=== PATIENT | male | born 1950 | race Caucasian/White ===

== ENCOUNTER → 2019-11-16 12:48 | Outpatient (BNVA) | payer MEDICARE, SELFPAY | PROVIDERS: PCP Internal Medicine; Visit Provider Orthopaedic Surgery | DX: S83.242A Other tear of medial meniscus, current injury, left knee, initial encounter (principal) | CPT/HCPCS: 99214 ==

== ENCOUNTER 2019-12-06 06:04 | Outpatient (REF) | payer MEDICARE, SELFPAY | END 2019-12-06 06:05 | disposition home or self-care (01) | LOC: HO.LAB 06:04 | PROVIDERS: PCP Internal Medicine; Visit Provider Internal Medicine | DX: Z20.828 Contact with and (suspected) exposure to other viral communicable diseases (principal) | CPT/HCPCS: 87635 ==

== ENCOUNTER 2019-12-06 06:19 | Day surgery (SDC) | payer MEDICARE, SELFPAY ==
--- NOTE | 2019-12-05 09:43 | HO.ANESPROP2 ---
Documented by User: Helene Felipe 12/05/19 09:51 HPI - Anesthesia Eval Consult details Narrative: 69yo M for L knee arthroscopy [facility] Past Medical History Medical History Back pain Depression Gout Hypertension Obesity PAUL (obstructive sleep apnea) PAF (paroxysmal atrial fibrillation) Prostate cancer Tear of medial meniscus of left knee Family History Family History Mother No problems noted. Surgical History Surgical History H/O colonoscopy H/O prostate biopsy History of Problems with Anesthesia: No Social History Social History Smoking Status: Never smoker Use of substances other than those prescribed or required for medical reasons: No Have you been hit, kicked, punched, or otherwise hurt by someone within the past year? If so, by whom?: No Advance Directives: No Advance Directives Information Provided: Yes Meds Allergies Allergy/AdvReac Type Severity Reaction Status Date / Time ciprofloxacin [From CIPRO] Allergy Unknown RASH Verified 11/16/19 12:56 prednisone [PREDNISONE] Allergy Unknown JOINT PAIN Verified 11/16/19 12:56 Home Medications Medication Instructions Recorded Confirmed Type allopurinol 300 mg tablet 300 mg PO DAILY 11/11/19 History amlodipine 10 mg tablet 10 mg PO DAILY 11/11/19 History carvedilol 25 mg tablet 25 mg PO BID 11/11/19 History Exam Exam Date and Time: December 05, 2019 0943 Narrative Narrative: EKG 10/2019: SB @59, LAD, Nonspec ST and T wave abn Echo 03/2018: LVEF 60-65%, no RWMA, No obvious valve path Assessment and Plan Assessment Anesthesia Assessment: Chart Reviewed Documented by User: Kevin Zavala 12/06/19 07:12 [facility] Past Medical History Medical History Back pain Depression Gout Hypertension Obesity PAUL (obstructive sleep apnea) PAF (paroxysmal atrial fibrillation) Prostate cancer Tear of medial meniscus of left knee Family History Family History Mother No problems noted. Surgical History Surgical History H/O colonoscopy H/O prostate biopsy Social History Social History Smoking Status: Never smoker Use of substances other than those prescribed or required for medical reasons: No Have you been hit, kicked, punched, or otherwise hurt by someone within the past year? If so, by whom?: No Advance Directives: No Advance Directives Information Provided: Yes Meds Allergies Allergy/AdvReac Type Severity Reaction Status Date / Time ciprofloxacin [From CIPRO] Allergy Unknown RASH Verified 11/16/19 12:56 prednisone [PREDNISONE] Allergy Unknown JOINT PAIN Verified 11/16/19 12:56 Home Medications Medication Instructions Recorded Confirmed Type allopurinol 300 mg tablet 300 mg PO DAILY 11/11/19 History amlodipine 10 mg tablet 10 mg PO DAILY 11/11/19 History carvedilol 25 mg tablet 25 mg PO BID 11/11/19 History Exam Airway Mallampati Class: III TM Dist: >3cm Neck ROM: Full Loose/Missing/Broken Teeth: No Heart: [id number] Lungs: cta b/l Assessment and Plan Assessment Anesthesia Assessment: Anesthesia Plan Discussed, PAT Visit and Chart Reviewed Final Anesthetic Review NPO: Yes ASA Class: III Final Preanesthetic Review: No Changes in Pt Med Stat, Meds/Allgs Chart Reviewed, Consent Obtained/Reviewed and Anes Risks/Benef Reviewed Patient Risk: Intermediate Procedure Risk: Low Assessment/Block/Sedation in SS: Assess/Block/Sedation-SS Anesthetic Plan Anesthetic Plan: GA Disposition: Standard PACU
[2019-12-06] VITALS (8 sets, daily range): BP systolic 136–159; BP diastolic 71–90; PULSE 56–60; RESP 16–20; TEMP 36.1; O2SAT 99–100; BMI 35.2
[2019-12-06] MEDS: Lactated Ringers 1,000 ML 100 ML IVCONT (06:55)
--- NOTE | 2019-12-06 07:29 | MHC.SHP ---
Pre-Procedural Eval Section A The patient is an INPATIENT: No Changes since office visit: Yes Patient answered all questions; No Cold of Flu in the past 2 weeks, No New Medical Problems and No Changes in Medication The History & Physical has been completed within 30 days and I have reviewed it.: Yes Section B Chief Complaint: Tear of Medial Meniscus Allergies: Allergies Allergy/AdvReac Type Severity Reaction Status Date / Time ciprofloxacin [From CIPRO] Allergy Unknown RASH Verified 11/16/19 12:56 prednisone [PREDNISONE] Allergy Unknown JOINT PAIN Verified 11/16/19 12:56 Plan Patient has been examined and remains a candidate for the planned procedure
[2019-12-06] MEDS: ceFAZolin Sodium/Dextrose,Iso 2 GM/50 ML PIGGYBACK IV (07:35)
--- NOTE | 2019-12-06 08:30 | PM.OP ---
Brief Operative Note Date of procedure: 12/06/19 Pre-op diagnosis: left knee medial meniscus tear Post-op diagnosis: other (1) same 2) left knee OA) Procedure: left knee medial meniscectomy and chondroplasty Surgeon: Kyle Mccord MD Anesthesia: GLMA and local Estimated blood loss (mL): 0 Tourniquet time (min): 20 IV fluids (mL): 500 Pathology: none sent Condition: stable Disposition: PACU
[2019-12-06] MEDS: fentaNYL citrate/PF 100 MCG/2 ML VIAL 25 MCG IVPUSH (09:13)
[2019-12-06] MEDS: oxyCODONE HCl Immed Release 5 MG TABLET 10 MG PO (09:18)
[2019-12-06] MEDS: Acetaminophen 325 MG TABLET 650 MG PO (09:19)
--- NOTE | 2019-12-06 10:21 | OP_ITS ---
SURGEON: Kyle Mccord MD INDICATIONS: This is a 69-year-old gentleman with pain in the left knee. Clinical and MRI evidence of meniscal tearing with minimal arthritis, consented to undergo left knee arthroscopy. PREOPERATIVE DIAGNOSIS: Left knee medial meniscal tear. POSTOPERATIVE DIAGNOSIS: Left knee medial meniscus tear Left knee osteoarthritis PROCEDURE PERFORMED: Left knee medial meniscectomy and chondroplasty. ESTIMATED BLOOD LOSS: None. COMPLICATIONS: None. ANESTHESIA: LMA and local. ASSISTANTS: None. SPECIMENS: POSTOPERATIVE DIAGNOSES: Left knee medial meniscal tear, left knee osteoarthritis. FLUIDS: 800. PROCEDURE IN DETAIL: The patient was brought to the operating room, placed supine on the arthroscopic table and prepped and draped in standard sterile fashion. Time-out was called to identify proper site, proper procedure, proper surgeon. IV antibiotics per weight was administered. I began by exsanguinating the limb and insufflating tourniquet to 300 mmHg. I made a standard anterolateral stab incision with 15 blade, placed my blunt trocar atraumatically into the patellofemoral joint. I insufflated the joint and placed my 30-degree arthroscope. There were grade 1 changes of the patella and grade 2 and scattered grade 3 changes throughout the majority of the trochlea. Gutters were clean. I descended into the medial compartment, where there was a large medial meniscus tear. A medial portal was made under direct visualization, and the torn portions of the meniscus were debrided down the stable edges using a combination of biter, shaver, and cautery. The articular surfaces were examined and the medial femoral condyle had grade 2 changes throughout the weightbearing portion and the posteromedial compartment had grade 4 changes with a grade 2 changes in the anterior half of the medial tibial plateau. The ACL was intact. Lateral compartment was relatively well preserved with some scattered grade 1 changes only. Once I had felt that the meniscus was debrided down to the stable edges, I removed all instrumentation. Portals were closed with skin glue and 25 mL of 0.25% Marcaine were injected both in the knee and the 2 anterior portals. The patient was placed in sterile dressing, awakened from anesthesia and brought to recovery room in stable condition. There were no known complications. Kyle Mccord MD NE/MODL / [id number] VIDHI
== END 2019-12-06 10:25 | disposition home or self-care (01) ==
PROVIDERS: PCP Internal Medicine; Visit Provider Orthopaedic Surgery
PROC: (CPT 29870; principal; 2019-12-06 07:30)
DX: S83.242A Other tear of medial meniscus, current injury, left knee, initial encounter (principal); M17.12 Unilateral primary osteoarthritis, left knee; X58.XXXA Exposure to other specified factors, initial encounter; Y93.9 Activity, unspecified; Y92.9 Unspecified place or not applicable; Y99.8 Other external cause status; I10 Essential (primary) hypertension; G47.33 Obstructive sleep apnea (adult) (pediatric); I48.0 Paroxysmal atrial fibrillation; M10.9 Gout, unspecified; Z79.899 Other long term (current) drug therapy; Z88.1 Allergy status to other antibiotic agents; Z88.8 Allergy status to other drugs, medicaments and biological substances; C61 Malignant neoplasm of prostate
CPT/HCPCS: 29881; 87635; J0171; J0690; J1100; J1885; J2250; J2405; J3010

== ENCOUNTER → 2019-12-22 12:43 | Outpatient (BNVA) | payer MEDICARE, SELFPAY | PROVIDERS: PCP Internal Medicine; Visit Provider Physician Assistant | DX: S83.242A Other tear of medial meniscus, current injury, left knee, initial encounter (principal); X58.XXXA Exposure to other specified factors, initial encounter; Y93.9 Activity, unspecified; Y92.9 Unspecified place or not applicable; Y99.8 Other external cause status | CPT/HCPCS: 99212 ==

== ENCOUNTER → 2020-02-05 14:28 | Outpatient (BNVA) | payer MEDICARE, SELFPAY | PROVIDERS: PCP Internal Medicine; Visit Provider Internal Medicine Cardiovascular Disease | DX: I48.0 Paroxysmal atrial fibrillation (principal); I10 Essential (primary) hypertension | CPT/HCPCS: 93005; 99212 ==

== ENCOUNTER → 2020-05-06 09:54 | Outpatient (BNVA) | payer MEDICARE, SELFPAY | PROVIDERS: PCP Internal Medicine; Visit Provider Internal Medicine Cardiovascular Disease | DX: R94.31 Abnormal electrocardiogram [ECG] [EKG] (principal) | CPT/HCPCS: 93005 ==

== ENCOUNTER → 2020-07-08 10:00 | Outpatient (BNVA) | payer MEDICARE, SELFPAY | PROVIDERS: PCP Internal Medicine; Visit Provider Internal Medicine Cardiovascular Disease | DX: I48.0 Paroxysmal atrial fibrillation (principal); R07.89 Other chest pain; R06.02 Shortness of breath | CPT/HCPCS: 93005; 99212 ==

== ENCOUNTER → 2020-08-07 07:25 | Outpatient (REF) | payer MEDICARE, SELFPAY ==
--- NOTE | ~2020-08-07 | NM_ITS ---
Myocardial perfusion study Indication: Shortness of breath to evaluate for myocardial ischemia Technique: The patient was brought in for a Lexiscan perfusion study on 08/07/2020. Patient performed low-level exercise and was injected 0.4 mg of Lexiscan intravenously. Within a minute of injection, 40 mCi of sestamibi was given intravenously. Images were obtained using the SPECT gamma camera interlaced with the gating device. Images were obtained in supine position. Resting perfusion study was performed on 08/08/2020. Patient was administered 40 mCi of sestamibi intravenously at rest. Images were then obtained in supine position. Images obtained with and without CT attenuation. Total DLP 130 mGy-cm. Images were processed with the software and compared side to side in short axis, horizontal long axis and vertical long axis views. Findings: The stress perfusion study showed nonattenuated images show mildly reduced uptake in the basal inferior wall of the LV myocardium. Remainder of the LV myocardium is normally perfused. Attenuation corrected images show minimally reduced uptake in the apex of the LV myocardium.. The gated study shows normal LV systolic function with calculated LVEF of 67%. LV cavity is normal in size. The gated study shows normal systolic wall thickening and contraction of segments. Resting study shows no change in perfusion pattern compared to stress perfusion study. Gating at rest reveals normal systolic wall motion with ejection fraction at 74%. The findings are consistent with normal myocardial perfusion. NM/NM cardiolite stress test Impression: 1. Myocardial perfusion imaging study shows normal myocardial perfusion 2. Gated LVEF is 67% 3. Transient ischemic dilatation not present EKG is nondiagnostic for ischemia
--- NOTE | 2020-08-07 07:28 | CA_ITS ---
Transthoracic Echocardiogram Patient (Last, First, Middle): Javier Law L Gender: Male Date of : 1950 Age: 70 Procedure Date: 08/07/2020 Procedure Type: Transthoracic Echocardiogram Location: OP Height: 172.72 cm Weight: 102.06 kg BSA: 2.15 m2 Heart Rate: bpm BP: 120 / 72 mmHg Marketing Senior Recruiter: Referring MD: Melvin Vang MD Clinical Trial Head: Melvin Vang MD Symptoms: R07.89 - Other chest pain Study Quality: Good ECG Rhythm: Sinus Conclusions: - 1. Normal LV systolic function with grade 1 diastolic dysfunction 2. Normal cardiac valvular Doppler 3. Normal RV systolic pressure 4. No gross pericardial effusion Findings Left Ventricle Normal left ventricular size, thickness, and systolic function. The visually estimated ejection fraction is between 60-65%. Spectral Doppler is indicative of an impaired relaxation filling pattern. E/E prime ratio is <8, consistent with normal filling pressures. Evidence suggests grade I (mild) diastolic dysfunction. Right Ventricle Normal right ventricular cavity size and systolic function. Atria The left atrium is likely dilated. There is no evidence of interatrial shunt. The right atrium is normal in size. Aortic Valve Normal aortic valve structure and function. There is no aortic valve stenosis. There is no aortic valve regurgitation. Mitral Valve Normal mitral valve structure and function. There is trace mitral valve regurgitation. There is no mitral valve stenosis. Pulmonic Valve The pulmonic valve is likely normal. Tricuspid Valve Normal tricuspid valve structure. There is trace tricuspid valve regurgitation. The right ventricular systolic pressure is normal. The right ventricular systolic pressure is 27 mmHg. Normal right atrial pressure. There is no evidence of pulmonary hypertension. Great Vessels All visible segments of the aorta are normal in size. The pulmonary artery was not well visualized. Small plaque is seen in the sino tubular ridge. Venous The inferior vena cava is normal in size and collapses greater than 50% with inspiration. Pericardium/Pleural There is no evidence of pericardial effusion. Prior Study Comparison No significant change compared to prior study dated: 03/24/2018. Measurements 2D Linear Measurements RVIDd: 3.61 RVIDd Index: 1.68 IVSd: 1.02 0.6-0.9/0.6-1.0 cm LVIDd: 5.19 3.9-5.3/4.2-5.9 cm LVIDd Index: 2.41 2.4-3.2/2.2-3.1 cm/m2 LVIDs: 3.75 2.0-3.6 cm LVPWd: 1.16 0.7-1.1 cm Ao Root: 2.90 2.1-3.5 cm LA Diam: 4.10 2.7-3.8/3.0-4.0 cm LAIDs Index: 1.91 1.5-2.3 cm/m2 LV Mass: 270.94 67-162/88-224 g LV Mass Index: 126.02 43-95/49-115 g/m2 LVOT Diam: 2.10 3.0+(-)1.3 cm 2D Systolic Function EF 4C: 78.40 >55% EF 2C: 65.40 >55% EF BiP: 72.90 >55% Mitral Valve MV Pk E: 0.90 MV PK A: 0.85 MV Decel Time: 297.00 E/A: 1.10 E'Lateral: 10.00 E'Medial: 9.14 E/E' Med: 9.90 E/E' Lat: 9.00 Aortic Valve AoV Pk Marito: 1.81 AoV Mn Marito: 1.23 AoV VTI: 0.40 AoV Pk Grad: 13.00 Aov Mn Grad: 7.00 LIVAN Cont.VTI: 3.23 LVOT LVOT Pk Marito: 1.49 LVOT Mn Marito: 0.97 LVOT VTI: 0.37 LVOT Pk Grad: 9.00 LVOT Mn Grad: 4.00 LVOT Diam: 2.10 LVOT Area: 3.46 Diastolic Function MV Pk E: 0.90 MV Pk A: 0.85 E/A: 1.10 E'Medial: 9.14 E/E' Med: 9.90 E' Laterial: 10.00 E/E' Lat: 9.00 Tricuspid Valve TR Pk Marito: 2.43 TR Pk Grad: 24.00 RA Press: 3.00 RVSP: 27.00 Great Vessels Aorta Ao Root-2D: 2.90 2.0-3.7 cm Ao Asc: 3.50 2.1-3.4 cm Ao Arch: 3.20 Updated in Other Vendor System with Status of Final Melvin Vang MD electronically signed on 08/07/2020 3:34:17 PM with status of Final
--- NOTE | 2020-08-07 07:28 | CA_ITS ---
Acquisition Time: 2020-08-07 08:12:48 Total Exercise Time: 00:05:23 Test Indications: Dyspnea Medications: ALLOPURINOL AMLODIPINE CARVEDILOL FLONASE DRONEDARONE PAROXETINE XARELTO Protocol: ELKE Max HR: 131 BPM 86% of Pred: 151 BPM Max BP: 160/088 mmHG Max Work Load: 7.0 METS Exercise stress test with exercise 5 min 23 sec of Elke protocol with moderate shortness of breath and leg fatigue and request to stop, no chest pains, with significant artifact on director of critical care without noted arrythmia, with normotensive response to exercise, with nondiagnostic EKG for ischemia due to suboptimal heart rate. Treadmill stopped and assisted to sitting position. Tet changed to a pharmacological stress test with Lexiscan injection, while sitting and kicking his legs, without arrythmia, with normotensive response to injection, with nondiagnostic EKG for ischemia. Nuclear images pending. Test reviewed with Dr Pop. Referred By: Melvin Vang Overread By: FELI LI
== END ==
LOC: HO.CARD 07:25
PROVIDERS: Visit Provider Internal Medicine Cardiovascular Disease
DX: I48.0 Paroxysmal atrial fibrillation (principal); I10 Essential (primary) hypertension; R06.02 Shortness of breath; R07.89 Other chest pain
CPT/HCPCS: 78452; 93017; 93306; A9500; J0280; J2785

== ENCOUNTER → 2020-08-21 10:48 | Outpatient (BNVA) | payer MEDICARE, SELFPAY | PROVIDERS: PCP Internal Medicine; Visit Provider Internal Medicine Cardiovascular Disease | DX: R07.89 Other chest pain (principal); I48.0 Paroxysmal atrial fibrillation | CPT/HCPCS: Q3014 ==

== ENCOUNTER → 2020-12-06 09:21 | Outpatient (BNVA) | payer MEDICARE, SELFPAY | PROVIDERS: PCP Internal Medicine; Referring Provider Internal Medicine; Visit Provider Internal Medicine Cardiovascular Disease | DX: R00.1 Bradycardia, unspecified (principal); R94.31 Abnormal electrocardiogram [ECG] [EKG] | CPT/HCPCS: 93005 ==

== ENCOUNTER 2021-01-27 10:18 | Outpatient (REF) | payer MEDICARE, SELFPAY ==
[2021-01-27 10:20] LABS: MANUAL DIFF FLAG NO
[2021-01-27 10:56] LABS: Basophils Percent Auto 0.3 % (0-2); Eosinophils Absolute Auto 0.2 X10*3/uL (0.0-0.4); Eosinophils Percent Auto 2.4 % (0-4); Hematocrit 39.3 % (42.0-52.0); Hemoglobin 12.9 g/dl (14.0-18.0); Imm Gran Abs Auto 0.03 X10*3/uL (0.00-0.03); Imm Gran Pct Auto 0.5 % (0.0-0.4); Lymphocytes Absolute Auto 1.3 X10*3/uL (1.2-4.9); Lymphocytes Percent Auto 20.1 % (20-40); Mean Corpuscular HGB Conc 32.8 g/dl (31.0-36.0); Mean Corpuscular Hemoglobin 31.6 pg (27.0-33.0); Mean Corpuscular Volume 96.3 fL (80.0-98.0); Mean Platelet Volume 10.2 fL (9.4-12.4); Monocytes Absolute Auto 0.5 X10*3/uL (0.1-1.2); Monocytes Percent Auto 7.4 % (2-11); Neutrophils Absolute Auto 4.4 x10*3/uL (2.0-8.3); Neutrophils Percent Auto 69.3 % (45-73); Platelet Count 174 X10*3/uL (160-400); Red Blood Count 4.08 X10*6/uL (4.60-5.80); Red Cell Distribution Width 13.5 % (11.0-16.0); White Blood Count 6.3 X10*3/uL (4.8-10.8)
[2021-01-27 10:57] LABS: Appearance Urine CLEAR; Color Urine YELLOW; Glucose Urine UA NEG (NEG); Leukocyte Esterase Urine NEG (NEG); Nitrite Urine NEG (NEG); Specific Gravity - Urine 1.025 (1.005-1.025); Urine Blood 2+ (NEG); Urine Ketones NEG (NEG); Urine Protein NEG (NEG-TRACE)
[2021-01-27 11:15] LABS: Alanine Aminotransferase 21 U/L (0-40); Alkaline Phosphatase 83 U/L (39-117); Anion Gap 14 (12-20); Aspartate Amino Transferase 21 U/L (5-37); Bilirubin Total 0.3 mg/dL (0.0-1.0); Blood Urea Nitrogen 11 mg/dL (9-16); Calcium 8.7 mg/dL (8.4-10.2); Carbon Dioxide 21 mmol/L (22-29); Chloride 111 mmol/L (96-108); Cholesterol 187 mg/dL; Estimated Glomerular Filt Rate > 60; Glucose Fasting 82 mg/dL (60-99); HDL Cholesterol 30 mg/dL; LDL Cholesterol Calculated 90 mg/dl; Potassium 3.5 mmol/L (3.3-5.1); Sodium 142 mmol/L (135-145); Total Protein 6.8 g/dL (6.5-8.0); Triglycerides 338 mg/dL
[2021-01-27 11:34] LABS: PSA,Total (Free>4and<10) 0.12 ng/mL (0.00-4.00)
[2021-01-27 11:46] LABS: Reflex LDLD? No
[2021-01-27 12:19] LABS: Squamous Epithelial Cell Urine 1+ /LPF; WBC Urine 0 /HPF (0-4)
[2021-01-27 13:14] LABS: Folate 6.9 ng/mL (> or = 4.0); Vitamin B12 574 pg/mL (200-900)
== END 2021-01-27 10:19 | disposition home or self-care (01) ==
LOC: HO.LNP 10:18
PROVIDERS: PCP Internal Medicine; Visit Provider Internal Medicine
DX: Z12.5 Encounter for screening for malignant neoplasm of prostate (principal); I10 Essential (primary) hypertension; D64.9 Anemia, unspecified; R97.20 Elevated prostate specific antigen [PSA]; E78.2 Mixed hyperlipidemia; E53.8 Deficiency of other specified B group vitamins
CPT/HCPCS: 80053; 80061; 81001; 81003; 82607; 82746; 84153; 85025

== ENCOUNTER 2021-02-10 14:53 | Emergency (ER) | payer MEDICARE, SELFPAY ==
--- NOTE | 2021-02-10 17:29 | ED_ITS ---
HPI - General Adult General Chief complaint: Upper Respiratory Symptoms Stated complaint: Flu Like Symptoms Source: patient Mode of arrival: ambulatory Limitations: no limitations History of Present Illness HPI narrative: 70 yold male with pmh of HTN presents to the ED for sore throat, runny nose, and some chills. Patient denies any chest pain or shorness of breath. Related Data Home Medications Medication Instructions Recorded Confirmed allopurinol 300 mg tablet 300 mg PO DAILY 11/11/19 08/21/20 carvedilol 25 mg tablet 25 mg PO BID 11/11/19 08/21/20 fluticasone propionate 50 1 spray INTRANASAL DAILY 02/05/20 08/21/20 mcg/actuation nasal spray,suspension paroxetine HCl 20 mg tablet 20 mg PO QAM 02/05/20 08/21/20 rivaroxaban 20 mg tablet 20 mg PO DAILY 02/05/20 08/21/20 Previous Rx's Medication Instructions Recorded hydrocodone 5 mg-acetaminophen 325 1 tab PO Q8H PRN #20 tab 12/06/19 mg tablet (Ronan) leg brace (Knee Support Brace) #1 ea 01/03/20 amlodipine 10 mg tablet 10 mg PO DAILY #90 tab 05/31/20 dronedarone 400 mg tablet 400 mg PO BID 30 Days #60 tab 06/28/20 Allergies Allergy/AdvReac Type Severity Reaction Status Date / Time ciprofloxacin [From CIPRO] Allergy Unknown RASH Verified 02/10/21 17:30 prednisone [PREDNISONE] Allergy Unknown JOINT PAIN Verified 02/10/21 17:30 Review of Systems Review of Systems: Yes all other systems are reviewed and are negative Constitutional: Constitutional: Reports as per HPI and Reports no additional constitutional complaints Eyes: Eyes: Reports as per HPI and Reports no additional eye complaints ENT: Reports system reviewed and no additional complaints, except as documente d, Reports as per HPI, Reports nasal congestion and Reports sore throat Cardiovascular: Cardiovascular: Reports as per HPI and Reports no additional cardiovascular complaints Respiratory: Respiratory: Reports as per HPI and Reports no additional respiratory complaints Gastrointestinal: Gastrointestinal: Reports as per HPI, Reports no additional gastrointestinal complaints and Reports nausea Genitourinary: Genitourinary: Reports no additional male genitourinary complaints and Reports as per HPI Musculoskeletal: Musculoskeletal: Reports no additional musculoskeletal complaints and Reports as per HPI Neurologic: Reports system reviewed and no additional complaints, except as documented and Reports as per HPI Psychiatric: Psychiatric: Reports no additional psychiatric complaints and Reports as per HPI Endocrine: Endocrine: Reports no additional endocrine complaints and Reports as per HPI [facility] Past Medical History Medical History Back pain Depression Gout Hypertension Obesity PAUL (obstructive sleep apnea) PAF (paroxysmal atrial fibrillation) Prostate cancer Tear of medial meniscus of left knee Surgical History H/O colonoscopy H/O prostate biopsy Family History Family History Mother No problems noted. Social History Social History Advance Directives: No Advance Directives Information Provided: No Current occupational status: retired Physical Exam Vital Signs: Vital Signs: Last Vital Signs Temp 98.2 F 02/10/21 17:30 Pulse 61 02/10/21 17:30 Resp 18 02/10/21 17:30 BP 186/88 H 02/10/21 17:30 Pulse Ox 99 02/10/21 17:30 BMI result Body Mass Index 37.7 Const: General: cooperative, healthy appearing, comfortable, no acute distress, well developed, alert, awake and Physically active Orientation/consciousness: patient oriented x3 HENMT: Head: Yes normal to inspection, Yes No palpable skull fracture present, Yes normocephalic, Yes atraumatic and No abrasion Eyes: General: appearance normal, both eyes and all related structures Neck: Neck: Yes normal visual inspection, Yes full ROM, Yes no lymphadenopathy, Yes no meningeal signs, Yes trachea midline, Yes supple, No anterior neck swelling and No tender Chest: Chest palpation & inspection: normal inspection of the chest and normal palpation of entire chest wall Resp: Effort & Inspection: normal respiratory effort and able to speak in complete sentences Auscultation: clear to auscultation bilaterally Cardio: Jugular venous distension: no JVD Heart sounds: S1 normal heart sound present and S2 normal heart sound present GI: Inspection: Yes normal to inspection and No abdominal wall ecchymosis Palpation (GI): Soft to palpation, not firm, nontender, no guarding and not rigid : General: No CVA tenderness and Yes no CVA tenderness Back/Spine/Pelvis: Back: no CVA tenderness, No CVA tenderness and No back tenderness Skin: General skin exam: no rashes or lesions noted and elasticity normal Neuro: General: patient oriented x3, gait normal, no meningeal signs and CN's II-XI intact bilaterally Cranial nerves: Yes CN's II-XII intact bilaterally Extrem: General: Yes normal to inspection and Yes full ROM Psych: Appearance: grossly normal, well kempt and not disheveled Course Course Course Narrative: patient is well appearing. covid and strep ordered Reevaluation(s) Reevaluation #1: Patient negative for covid and strep. patient is well appearing. Patient has pmh of htn and has no neuro deficitis. patient will takeHTN meds at home. Time: 18:36 Medical Decision Making MDM Narrative Medical decision making narrative: Viral Syndrome Lab Data Labs: Lab Results 02/10/21 02/10/21 Range/Units 17:24 17:29 COVID-19 ([facility]) Negative (Negative) COVID-19 Clin Com See Note S. pyogenes GrpA DENISSE Negative (Negative) Discharge Plan Discharge Clinical Impression: Viral syndrome Patient Disposition: Home, Self-Care Instructions: Viral Syndrome (ED) Additional Instructions: You came back negative for COVID and strep. Return to the ED immediately for any chest pain, shortness of breath, weakness, dizziness, inability to tolerate solid food/liquid, change in voice, sore throat, abdominal pain, diarrhea, or any other concerning symptoms. Prescriptions: No Action amlodipine 10 mg tablet 10 mg PO DAILY Qty: 90 RF: 3 dronedarone 400 mg tablet 400 mg PO BID 30 Days Qty: 60 RF: 5 hydrocodone-acetaminophen [Ronan] 5-325 mg tablet 1 tab PO Q8H PRN (Reason: pain) Qty: 20 RF: 0 (DME) Knee Support Brace Misc See Rx Instructions .MEDSUPPLY Qty: 1 RF: 0 allopurinol 300 mg tablet 300 mg PO DAILY RF: 0 carvedilol 25 mg tablet 25 mg PO BID RF: 0 paroxetine HCl 20 mg tablet 20 mg PO QAM RF: 0 Xarelto 20 mg tablet 20 mg PO DAILY RF: 0 fluticasone propionate 50 mcg/actuation spray,suspension 1 spray intranasal DAILY RF: 0 Interventions: ED Discharge Assessment Last Done: 02/10/21 20:22 Discharge Date/Time: 02/10/21 20:22 Print Language: Moldovan
[2021-02-10 17:30] VITALS: BP 186/88; PULSE 61; RESP 18; TEMP 36.8; O2SAT 99; BMI 37.7
[2021-02-10 17:48] LABS: Strep A Nucleic Acid Negative (Negative)
[2021-02-10 17:54] LABS: COVID-19 Test Negative (Negative)
== END 2021-02-10 20:22 | disposition home or self-care (01) ==
PROVIDERS: Physician Assistant; Emergency Provider Emergency Medicine; PCP Internal Medicine
DX: B34.9 Viral infection, unspecified (principal); I10 Essential (primary) hypertension; I48.0 Paroxysmal atrial fibrillation; Z20.822 Contact with and (suspected) exposure to COVID-19
CPT/HCPCS: 36415; 87635; 87651; 99283

== ENCOUNTER 2021-02-27 13:10 | Outpatient (REF) | payer MEDICARE, SELFPAY ==
[2021-02-27 14:55] LABS: Binax Internal Control QC Valid; Binax Lot number: 9864; Binax Now Covid-19 Ag Negative (Negative)
== END 2021-02-27 13:11 | disposition home or self-care (01) ==
LOC: HO.LAB 13:10
PROVIDERS: Visit Provider Internal Medicine
DX: Z20.822 Contact with and (suspected) exposure to COVID-19 (principal)
CPT/HCPCS: C9803

== ENCOUNTER 2021-03-28 13:03 | Outpatient (REF) | payer MEDICARE, SELFPAY ==
--- NOTE | ~2021-03-28 | CT_ITS ---
EXAMINATION: CT CHEST WITHOUT CONTRAST CLINICAL INFORMATION: Lung nodule. COMPARISON: CT abdomen and pelvis 06/13/2014. TECHNIQUE: Multidetector volumetric CT imaging of the chest was done. Axial MIP volume rendering provided. Sagittal and coronal reformatted images were obtained. This CT examination was performed using dose optimization techniques as appropriate, variously including the following: *Automated exposure control *Adjustment of mA and/or kV according to patient size (this includes techniques or standardized protocols for targeted exams where dose is matched to indication/reason for exam; i.e. extremities or head) *Use of iterative reconstruction technique DLP: 340 mGy-cm FINDINGS: LUNGS: The lungs are clear with no evidence of inflammation or worrisome nodules. A tiny punctate granuloma is present in the left lower lobe (7:454). MEDIASTINUM: Heart size normal. Moderately extensive coronary calcifications are seen. No mediastinal or hilar lymphadenopathy is present. PLEURA: There is no pleural effusion. No pleural mass or thickening. AXILLA: No lymphadenopathy. UPPER ABDOMEN: Liver parenchyma demonstrates decreased attenuation compared with the spleen along with areas of focal fatty sparing adjacent to the gallbladder consistent with hepatic steatosis. OSSEOUS STRUCTURES: Mild degenerative changes present in the spine. No bony destructive lesions. CT/CT chest wo con IMPRESSION: No lung nodules are seen. A tiny punctate 1 mm granuloma is present in the left lung base. Incidental note made of hepatic steatosis along with a combined common trunk involving the celiac and SMA. Fleischner guidelines were followed.
== END 2021-03-28 13:04 | disposition home or self-care (01) ==
LOC: HO.CT 13:03
PROVIDERS: Visit Provider Internal Medicine
DX: R91.1 Solitary pulmonary nodule (principal)
CPT/HCPCS: 71250

== ENCOUNTER 2021-03-31 12:47 | Outpatient (REF) | payer MEDICARE, SELFPAY ==
[2021-03-31 13:42] LABS: COVID-19 Test Negative (Negative)
== END 2021-03-31 12:48 | disposition home or self-care (01) ==
LOC: HO.LAB 12:47
PROVIDERS: Visit Provider Internal Medicine
DX: Z20.822 Contact with and (suspected) exposure to COVID-19 (principal)
CPT/HCPCS: 87635; C9803

== ENCOUNTER 2021-04-29 10:45 | Outpatient (REF) | payer MEDICARE, SELFPAY ==
--- NOTE | ~2021-04-29 | MM_ITS ---
EXAMINATION: MM DIAGNOSTIC DIGITAL BREAST TOMOSYNTHESIS, BILATERAL US DIAGNOSTIC ULTRASOUND BREAST, BILATERAL CLINICAL INFORMATION: Male age 70 with 1 month history fullness and tenderness retroareolar left breast and more recent mild symptoms on right. Personal history prostate cancer and post therapy course of tamoxifen. Family history breast cancer, mother. COMPARISON: None (current study represents initial baseline exam). TECHNIQUE: Digital breast tomosynthesis is performed in both the craniocaudal and mediolateral oblique views along with computer-aided detection (CAD). Synthesized 2D images are generated from the tomosynthesis. Additional left CC view is provided. Ultrasound bilateral breasts is targeted to the retroareolar and periareolar regions. Grayscale imaging and color Doppler are performed without and with harmonics. FINDINGS: There are scattered areas of fibroglandular density (ACR BI-RADS breast composition Category b). There is asymmetric gynecomastia pattern, moderate severity retroareolar left breast and mild retroareolar right breast. There is no mass or architectural abnormality. No abnormal calcifications. No skin thickening or coarsening of the stromal markings. Ultrasound demonstrates bilateral gynecomastia pattern similar to the mammography, moderate on left and trace on right. There is no superimposed cystic or solid mass or architectural abnormality. No skin thickening or edema tracking in soft tissue planes. Results are discussed with the patient at time of visit. MM/MM tomosynthesis diagnostic BI IMPRESSION: Bilateral asymmetric gynecomastia, moderate on left and mild on right. ASSESSMENT: BI-RADS 2: Benign RECOMMENDATION: Patient may be managed and followed up as needed based on the clinical impression. If clinically indicated, further evaluation may be considered with surgical consult. Decision to proceed with biopsy should be based on clinical grounds and degree of clinical concern.
== END 2021-04-29 10:46 | disposition home or self-care (01) ==
LOC: HO.MAMMO 10:45
PROVIDERS: PCP Internal Medicine; Visit Provider Internal Medicine
DX: N62 Hypertrophy of breast (principal)
CPT/HCPCS: 76642; 77062; 77066

== ENCOUNTER 2021-07-10 08:58 | Outpatient (REF) | payer MEDICARE, SELFPAY ==
--- NOTE | ~2021-07-10 | CT_ITS ---
EXAMINATION: CT CHEST WITHOUT CONTRAST CLINICAL INFORMATION: Solitary pulmonary nodule COMPARISON: Previous chest CT March 2021 TECHNIQUE: Multidetector volumetric CT imaging of the chest was done. Axial MIP volume rendering provided. Sagittal and coronal reformatted images were obtained. This CT examination was performed using dose optimization techniques as appropriate, variously including the following: *Automated exposure control *Adjustment of mA and/or kV according to patient size (this includes techniques or standardized protocols for targeted exams where dose is matched to indication/reason for exam; i.e. extremities or head) *Use of iterative reconstruction technique DLP: 33 mGy-cm FINDINGS: LUNGS: There is a 2 mm peripheral left upper lobe nodule axial image 204 series 8 that is stable. There is a 2 mm peripheral lingular nodule axial image 328 series 8 that is stable. There is a 2 mm calcified left lower lobe nodule axial image 430 series 8 that is stable. No new pulmonary nodule is seen. MEDIASTINUM: The heart does not appear enlarged. There is coronary artery calcification. There is no pericardial effusion. There are no enlarged hilar or mediastinal lymph nodes. PLEURA: There is no pleural effusion. No pleural mass or thickening. AXILLA: No lymphadenopathy. UPPER ABDOMEN: Unremarkable. OSSEOUS STRUCTURES: There are degenerative changes of the spine. CT/CT chest wo con IMPRESSION: Stable small pulmonary nodules. Coronary artery calcification. Fleischner guidelines were followed.
== END 2021-07-10 08:59 | disposition home or self-care (01) ==
LOC: HO.CT 08:58
PROVIDERS: Visit Provider Internal Medicine
DX: R91.1 Solitary pulmonary nodule (principal)
CPT/HCPCS: 71250

== ENCOUNTER → 2021-08-01 13:21 | Outpatient (REF) | payer MEDICARE, SELFPAY ==
--- NOTE | ~2021-08-01 | US_ITS ---
EXAMINATION: US EXTRACRANIAL CAROTID DUPLEX, BILATERAL CLINICAL INFORMATION: This is a 71-year-old male with dizziness and giddiness. Carotid artery disease. COMPARISON: None TECHNIQUE: Real-time ultrasound and Doppler techniques (integrating B-mode 2-D vascular images, Doppler spectral analysis and color-flow Doppler imaging) were utilized to interrogate the extracranial carotid arteries, the vertebral arteries and proximal subclavian arteries bilaterally. The degree of stenosis is determined by criteria similar to NASCET. FINDINGS: Right Side: 1. There is minimal atherosclerotic plaque seen in the bifurcation/proximal ICA region. 2. The common carotid artery PSV proximally is 82 cm/s and distally 80 cm/s. 3. The proximal internal carotid artery velocities are 78 cm/s systolic and 22 cm/s diastolic. 4. The proximal external carotid artery PSV is 55 cm/s. 5. The vertebral artery shows antegrade flow. 6. The subclavian artery waveforms are normal. Left Side: 1. There is normal atherosclerotic plaque seen in the bifurcation/proximal ICA region. 2. The common carotid artery PSV proximally is 104 cm/s and distally 78 cm/s. 3. The proximal internal carotid artery velocities are 89 cm/s systolic and 22 cm/s diastolic. 4. The proximal external carotid artery PSV is 85 cm/s. 5. The vertebral artery shows antegrade flow. 6. The subclavian artery waveforms are normal. US/US carotid duplex BI IMPRESSION: 1. RIGHT: Minimal, non-hemodynamically significant stenosis of the proximal right internal carotid artery corresponding to a 0-49% stenosis by velocity criteria. 2. LEFT: Minimal, non-hemodynamically significant stenosis of the proximal left internal carotid artery corresponding to a 0-49% stenosis by velocity criteria.
--- NOTE | 2021-08-01 13:25 | ECG_ITS ---
Hook-up date: 2021-08-01 12:35:00 Duration: 47:59:00 Test Indications: dizziness and giiddiness Medications: [id number] QRS complexes 214 Ventricular ectopics which represent <1 % of total QRS comp. 19 Supraventricular ectopics which represent <1 % of total QRS comp. * Paced QRS complexs which represent % of total QRS comp. VENTRICULAR ECTOPY 214 Isolated 0 Bigeminal Cycles 0 Couplets 0 Runs 0 Beats in Runs * Beats LONGEST at * BPM at :: -- * Beats FASTEST at * BPM at :: -- SUPRAVENTRICULAR ECTOPY 17 Isolated 1 Couplets 0 Runs 0 Beats in Runs * Beats LONGEST at * BPM at :: -- * Beats FASTEST at * BPM at :: -- HEART RATES 47 MIN at 04:39:29 2021-08-03 62 AVG 105 MAX at 16:46:03 2021-08-01 LONGEST RR 1.2640 secs at 04:48:13 2021-08-03 S-T LEVELS Channel 1 - 128 mm at 12:35:00 2021-08-01 - 128 mm at 12:35:00 2021-08-01 Channel 2 - 128 mm at 12:35:00 2021-08-01 - 128 mm at 12:35:00 2021-08-01 Channel 3 - 128 mm at 03:15:41 -- - 128 mm at 03:15:41 Basic rhythm Normal sinus rhythm No long pauses Frequent Sinus bradycardia , 51% of time HR < 60 bpm Occasional Premature ventricular complexes Patient did not report any symptoms in the diary Referred By: Renée Scott Overread By: ALPESH PAEZ MD
== END ==
LOC: HO.CARD 13:21
PROVIDERS: Visit Provider Psychiatry & Neurology Neurology
DX: R42 Dizziness and giddiness (principal); I25.10 Atherosclerotic heart disease of native coronary artery without angina pectoris; R00.1 Bradycardia, unspecified
CPT/HCPCS: 93225; 93226; 93880